=== PATIENT | male | born 1975 | race Caucasian/White ===

== ENCOUNTER 2023-01-10 01:46 | Outpatient (RCR) | payer MEDICAID, SELFPAY ==
[2023-01-03] MEDS: Normal Saline Flush 10 ML SYR IVP (11:54)
[2023-01-03 12:09] LABS: Abs Immature Grans 0.05 10^3/uL (0.0-0.06); Absolute Basophil Count 0.07 10^3/uL (0.0-0.2); Absolute Eosinophil Count 0.25 10^3/uL (0.0-0.7); Absolute Lymphocyte Count 1.16 10^3/uL (1.2-3.4); Absolute Monocyte Count 1.09 10^3/uL (0.1-0.8); Absolute Neutrophil Count 6.81 10^3/uL (1.2-6.7); Basophils % 0.7; Eosinophils % 2.7; HCT 25.8 % (40.0-50.0); HGB 8.6 g/dL (13.5-17.5); Immature Grans % 0.5; Lymphocytes % 12.3; MCH 29.9 pg (27.0-33.0); MCHC 33.3 % (32.0-36.0); MCV 90 fL (80-95); MPV 9.9 fL (8.0-11.0); Monocytes % 11.6; Neutrophils % 72.2; Platelet Count 460 10^3/uL (130-400); RBC 2.88 10^6/uL (4.36-5.78); RDW 11.6 % (11.8-14.1); RDW-SD 37.4 fL; WBC 9.43 10^3/uL (4.4-10.8)
[2023-01-03 12:29] LABS: ALT 20 U/L (16-63); AST 10 U/L (15-37); Albumin 3.4 g/dL (3.4-5.0); Alkaline Phosphatase 100 U/L (46-116); Anion Gap 6.5 mmol/L (3-11); BUN 51 mg/dL (7-18); Bilirubin, Total 0.2 mg/dL (0.2-1.0); CO2 27.5 mmol/L (21.0-32.0); CREATININE 2.2 mg/dL (0.70-1.30); Chloride 100 mmol/L (98-107); Estimated GFR 36.04 (mL/min/1.73m2); Glucose 249 mg/dL (74-106); LDH 283 U/L (85-227); Potassium 5.3 mmol/L (3.5-5.1); Sodium 134 mmol/L (136-145); Total Protein 7.1 g/dL (6.4-8.2)
[2023-01-10] MEDS: Normal Saline Flush 10 ML SYR IVP (07:05)
[2023-01-10 07:34] LABS: Abs Immature Grans 0.27 10^3/uL (0.0-0.06); HCT 23.9 % (40.0-50.0); HGB 7.9 g/dL (13.5-17.5); MCH 29.5 pg (27.0-33.0); MCHC 33.1 % (32.0-36.0); MCV 89 fL (80-95); Platelet Count 303 10^3/uL (130-400); RBC 2.68 10^6/uL (4.36-5.78); RDW 11.9 % (11.8-14.1); RDW-SD 38.5 fL; WBC 2.51 10^3/uL (4.4-10.8)
[2023-01-10 07:50] LABS: ALT 46 U/L (16-63); AST 7 U/L (15-37); Albumin 3.4 g/dL (3.4-5.0); Alkaline Phosphatase 138 U/L (46-116); Anion Gap 9.1 mmol/L (3-11); BUN 48 mg/dL (7-18); Bilirubin, Total 0.4 mg/dL (0.2-1.0); CO2 21.9 mmol/L (21.0-32.0); CREATININE 1.3 mg/dL (0.70-1.30); Calcium 9.2 mg/dL (8.5-10.1); Chloride 104 mmol/L (98-107); Estimated GFR 67.76 (mL/min/1.73m2); Glucose 243 mg/dL (74-106); LDH 148 U/L (85-227); Potassium 4.3 mmol/L (3.5-5.1); Sodium 135 mmol/L (136-145); Total Protein 6.5 g/dL (6.4-8.2)
[2023-01-10 08:05] LABS: Absolute Eosinophil Count 0.18 10^3/uL (0.0-0.7); Absolute Lymphocyte Count 0.55 10^3/uL (1.2-3.4); Absolute Neutrophil Count 1.76 10^3/uL (1.2-6.7); Atypical Lymphocytes % 0; Bands % 0; Diff Comment Manual Differential; Hypochromasia 1+; Metamyelocytes % 1
== END 2023-01-12 23:59 | disposition home or self-care (01) ==
LOC: INF 01:46
PROVIDERS: PCP Registered Nurse; Visit Provider Internal Medicine Hematology & Oncology
DX: Z45.2 Encounter for adjustment and management of vascular access device (principal); C83.38 Diffuse large B-cell lymphoma, lymph nodes of multiple sites
CPT/HCPCS: 36591; 80053; 83615; 85025

== ENCOUNTER 2023-01-24 02:44 | Outpatient (RCR) | payer MEDICAID, SELFPAY ==
[2023-01-24] MEDS: Normal Saline Flush 10 ML SYR IVP (07:51)
[2023-01-24 07:55] LABS: Abs Immature Grans 0.25 10^3/uL (0.0-0.06); Absolute Monocyte Count 1.39 10^3/uL (0.1-0.8); Eosinophils % 0.9; HCT 24.2 % (40.0-50.0); HGB 7.9 g/dL (13.5-17.5); Immature Grans % 1.4; Lymphocytes % 4.6; MCH 30.4 pg (27.0-33.0); MCHC 32.6 % (32.0-36.0); MCV 93 fL (80-95); MPV 9.5 fL (8.0-11.0); Monocytes % 7.9; Neutrophils % 84.2; Platelet Count 421 10^3/uL (130-400); RDW 14.5 % (11.8-14.1); RDW-SD 42.1 fL; WBC 17.54 10^3/uL (4.4-10.8)
[2023-01-24 07:56] LABS: Absolute Basophil Count 0.18 10^3/uL (0.0-0.2); Absolute Eosinophil Count 0.16 10^3/uL (0.0-0.7); Absolute Lymphocyte Count 0.81 10^3/uL (1.2-3.4); Absolute Neutrophil Count 14.77 10^3/uL (1.2-6.7)
[2023-01-24 08:13] LABS: ALT 24 U/L (16-63); AST 12 U/L (15-37); Albumin 3.6 g/dL (3.4-5.0); Alkaline Phosphatase 182 U/L (46-116); Anion Gap 7.2 mmol/L (3-11); BUN 35 mg/dL (7-18); Bilirubin, Total 0.2 mg/dL (0.2-1.0); CO2 24.8 mmol/L (21.0-32.0); CREATININE 1.6 mg/dL (0.70-1.30); Calcium 9.1 mg/dL (8.5-10.1); Chloride 107 mmol/L (98-107); Estimated GFR 52.82 (mL/min/1.73m2); Glucose 81 mg/dL (74-106); LDH 188 U/L (85-227); Potassium 4.8 mmol/L (3.5-5.1); Sodium 139 mmol/L (136-145)
== END 2023-02-11 23:59 | disposition home or self-care (01) ==
LOC: INF 02:44
PROVIDERS: PCP Registered Nurse; Visit Provider Internal Medicine Hematology & Oncology
DX: Z45.2 Encounter for adjustment and management of vascular access device (principal); C83.38 Diffuse large B-cell lymphoma, lymph nodes of multiple sites
CPT/HCPCS: 36591; 80053; 83615; 85025

== ENCOUNTER 2023-03-07 04:07 | Outpatient (RCR) | payer MEDICAID, SELFPAY ==
[2023-02-14] MEDS: Normal Saline Flush 10 ML SYR IVP (07:53)
[2023-02-14 08:10] LABS: Abs Immature Grans 0.08 10^3/uL (0.0-0.06); Absolute Basophil Count 0.09 10^3/uL (0.0-0.2); Absolute Eosinophil Count 0.07 10^3/uL (0.0-0.7); Absolute Lymphocyte Count 0.49 10^3/uL (1.2-3.4); Absolute Monocyte Count 1.05 10^3/uL (0.1-0.8); Absolute Neutrophil Count 8.05 10^3/uL (1.2-6.7); Basophils % 0.9; Eosinophils % 0.7; HCT 22.6 % (40.0-50.0); HGB 7.3 g/dL (13.5-17.5); Immature Grans % 0.8; MCH 31.5 pg (27.0-33.0); MCHC 32.3 % (32.0-36.0); MCV 97 fL (80-95); MPV 9.3 fL (8.0-11.0); Monocytes % 10.7; Neutrophils % 81.9; Platelet Count 387 10^3/uL (130-400); RBC 2.32 10^6/uL (4.36-5.78); WBC 9.83 10^3/uL (4.4-10.8)
[2023-02-14 08:39] LABS: ALT 27 U/L (16-63); AST 19 U/L (15-37); Albumin 3.8 g/dL (3.4-5.0); Alkaline Phosphatase 140 U/L (46-116); Anion Gap 8.9 mmol/L (3-11); BUN 27 mg/dL (7-18); Bilirubin, Total 0.2 mg/dL (0.2-1.0); CO2 24.1 mmol/L (21.0-32.0); CREATININE 1.4 mg/dL (0.70-1.30); Calcium 9.3 mg/dL (8.5-10.1); Chloride 106 mmol/L (98-107); Glucose 164 mg/dL (74-106); LDH 227 U/L (85-227); Potassium 5.1 mmol/L (3.5-5.1); Sodium 139 mmol/L (136-145)
[2023-02-14 08:49] LABS: Basophilic Stippling Present; Diff Comment Diff Reviewed; Hypochromasia 2+; Poikilocytes 2+
[2023-02-14 11:10] LABS: Iron 45 ug/dL (65-175)
[2023-02-14 11:23] LABS: Ferritin 570 ng/mL (26-388)
[2023-03-07] MEDS: Normal Saline Flush 10 ML SYR IVP (08:42)
[2023-03-07 08:56] LABS: Abs Immature Grans 0.07 10^3/uL (0.0-0.06); Absolute Basophil Count 0.08 10^3/uL (0.0-0.2); Absolute Eosinophil Count 0.08 10^3/uL (0.0-0.7); Absolute Lymphocyte Count 0.58 10^3/uL (1.2-3.4); Absolute Monocyte Count 1.03 10^3/uL (0.1-0.8); Basophils % 0.8; Eosinophils % 0.8; Immature Grans % 0.7; Lymphocytes % 5.5; MCH 30.6 pg (27.0-33.0); MCHC 32.1 % (32.0-36.0); MCV 95 fL (80-95); MPV 9.7 fL (8.0-11.0); Monocytes % 9.8; Neutrophils % 82.4; Platelet Count 361 10^3/uL (130-400); RBC 2.94 10^6/uL (4.36-5.78); RDW-SD 65.5 fL; WBC 10.54 10^3/uL (4.4-10.8)
[2023-03-07 09:20] LABS: ALT 29 U/L (16-63); AST 18 U/L (15-37); Albumin 4.1 g/dL (3.4-5.0); Alkaline Phosphatase 106 U/L (46-116); Anion Gap 9.6 mmol/L (3-11); BUN 28 mg/dL (7-18); Bilirubin, Total 0.3 mg/dL (0.2-1.0); CO2 24.4 mmol/L (21.0-32.0); CREATININE 1.3 mg/dL (0.70-1.30); Calcium 9.5 mg/dL (8.5-10.1); Chloride 104 mmol/L (98-107); Estimated GFR 67.76 (mL/min/1.73m2); Glucose 167 mg/dL (74-106); LDH 209 U/L (85-227); Potassium 5.2 mmol/L (3.5-5.1); Sodium 138 mmol/L (136-145)
== END 2023-03-14 23:59 | disposition home or self-care (01) ==
LOC: INF 04:07
PROVIDERS: PCP Registered Nurse; Visit Provider Internal Medicine Hematology & Oncology
DX: Z45.2 Encounter for adjustment and management of vascular access device (principal); C83.38 Diffuse large B-cell lymphoma, lymph nodes of multiple sites
CPT/HCPCS: 36591; 80053; 82728; 83540; 83550; 83615; 85025

== ENCOUNTER 2023-03-28 03:06 | Outpatient (RCR) | payer MEDICAID, SELFPAY ==
[2023-03-28] MEDS: Normal Saline Flush 10 ML SYR IVP (09:37)
[2023-03-28 09:54] LABS: Abs Immature Grans 0.13 10^3/uL (0.0-0.06); Absolute Basophil Count 0.08 10^3/uL (0.0-0.2); Absolute Eosinophil Count 0.02 10^3/uL (0.0-0.7); Absolute Lymphocyte Count 0.72 10^3/uL (1.2-3.4); Absolute Monocyte Count 1.03 10^3/uL (0.1-0.8); Absolute Neutrophil Count 6.91 10^3/uL (1.2-6.7); Basophils % 0.9; Eosinophils % 0.2; HCT 26.9 % (40.0-50.0); HGB 8.8 g/dL (13.5-17.5); Immature Grans % 1.5; Lymphocytes % 8.1; MCH 31.9 pg (27.0-33.0); MCHC 32.7 % (32.0-36.0); MCV 98 fL (80-95); MPV 9.3 fL (8.0-11.0); Monocytes % 11.6; Neutrophils % 77.7; Platelet Count 347 10^3/uL (130-400); RBC 2.76 10^6/uL (4.36-5.78); RDW 19.3 % (11.8-14.1); RDW-SD 68.6 fL; WBC 8.89 10^3/uL (4.4-10.8)
[2023-03-28 10:09] LABS: ALT 32 U/L (16-63); AST 20 U/L (15-37); Albumin 4.3 g/dL (3.4-5.0); Alkaline Phosphatase 103 U/L (46-116); Anion Gap 6.6 mmol/L (3-11); BUN 29 mg/dL (7-18); Bilirubin, Total 0.3 mg/dL (0.2-1.0); CO2 26.4 mmol/L (21.0-32.0); CREATININE 1.1 mg/dL (0.70-1.30); Calcium 9.3 mg/dL (8.5-10.1); Chloride 104 mmol/L (98-107); Estimated GFR 82.81 (mL/min/1.73m2); Glucose 162 mg/dL (74-106); LDH 279 U/L (85-227); Potassium 4.6 mmol/L (3.5-5.1); Sodium 137 mmol/L (136-145); Total Protein 7.2 g/dL (6.4-8.2)
== END 2023-04-13 23:59 | disposition home or self-care (01) ==
LOC: INF 03:06
PROVIDERS: PCP Registered Nurse; Visit Provider Internal Medicine Hematology & Oncology
DX: Z45.2 Encounter for adjustment and management of vascular access device (principal); C83.38 Diffuse large B-cell lymphoma, lymph nodes of multiple sites
CPT/HCPCS: 36591; 80053; 83615; 85025

== ENCOUNTER 2023-05-11 00:10 | Outpatient (CLI) | payer MEDICAID, SELFPAY ==
--- NOTE | 2023-05-11 07:15 | DI.MRI_ITS ---
Exam(s) MR LOWER JOINT LT WO/W EXAM: MR LOWER JOINT LT WO/W CLINICAL HISTORY: Chronic wound,? OSTEO,S81.802A,S81.801A,E11.62.L97.309. TECHNIQUE: Multiplanar multisequence MRI was performed. CONTRAST MATERIAL: IV Contrast: 14 mL of Dotarem contrast administered. COMPARISON: None. FINDINGS: A marker was placed on the site of concern. The markers placed anterior to the ankle joint on the yuly sum of the foot. No MR findings are seen to suggest osteomyelitis. There is a small amount of edema i n the area of the marker. No enhancing fluid collection is seen to suggest an abscess. There does nolan ear to be a skin defect which may represent an ulcer laceration in this region. The underlying extens or tendons are unremarkable. LIGAMENTS: The tibiofibular and calcaneofibular ligaments are intact. The talofibular ligaments are i ntact. The deltoid ligament is intact. The syndesmosis is unremarkable. Sinus tarsi is normal. MUSCULOTENDINOUS STRUCTURES: Achilles tendon: Unremarkable. Plantar fascia: Unremarkable. Anterior Extensor tendons: Unremarkable. Posterior Tibialis: Unremarkable. Flexor Digitorum longus: Unremarkable. Flexor Hallucis longus: Unremarkable. Peroneus longus: Unremarkable. Peroneus brevis:Unremarkable. OTHER FINDINGS: There is a small amount of fluid in the tibial talar joint. IMPRESSION: 1. No MRI evidence to suggest osteomyelitis. 2. Mild edema in the soft tissues in the area marked. No focal fluid collection is seen to suggest an abscess. There is some skin irregularity noted in this region which may represent an ulcer or lacera tion. DATA REPOSITORY:
--- NOTE | 2023-05-11 07:15 | DI.MRI_ITS ---
Exam(s) MR LOWER JOINT RT WO/W EXAM: MR LOWER JOINT RT WO/W CLINICAL HISTORY: Chronic wound,?osteo,S81.801A,S81.802A,L97.309,E11.622. TECHNIQUE: Multiplanar multisequence MRI was performed. CONTRAST MATERIAL: IV Contrast: 14 mL of Dotarem contrast administered. COMPARISON: None. FINDINGS: There are 2 areas marked both on the dorsum of the foot close to the ankle. There is soft tissue thi ckening in this area and mild edema in the soft tissues. There is a 0.8 x 0.4 cm peripherally enhanc ing fluid collection in the subcutaneous tissues beneath 1 of the markers. (Series [id number], image 13). This may represent a small abscess. The underlying extensor tendons are unremarkable. There is no evidence of osteomyelitis. LIGAMENTS: The tibiofibular and calcaneofibular ligaments are intact. The talofibular ligaments are i ntact. The deltoid ligament is intact. The syndesmosis is unremarkable. Sinus tarsi is normal. MUSCULOTENDINOUS STRUCTURES: Achilles tendon: Unremarkable. Plantar fascia: Unremarkable. Anterior Extensor tendons: Unremarkable. Posterior Tibialis: Unremarkable. Flexor Digitorum longus: Unremarkable. Flexor Hallucis longus: Unremarkable. Peroneus longus: Unremarkable. Peroneus brevis:Unremarkable. OTHER FINDINGS: None. IMPRESSION: 1. No evidence of osteomyelitis. 2. 0.8 x 0.4 cm peripherally enhancing fluid collection on the dorsum of the foot which may represent a small abscess. This corresponds to the palpable area of concern. 3. Subcutaneous edema and soft tissue thickening corresponding to the 2 palpable areas this may repre sent a cellulitis. DATA REPOSITORY:
[2023-05-11] MEDS: Normal Saline Flush 10 ML SYR IVP (12:33)
[2023-05-11] MEDS: Gadoterate meglumine 20 ML VIAL 14 ML IVP (12:34)
== END 2023-05-11 00:30 ==
PROVIDERS: PCP Registered Nurse; Visit Provider Physical Therapy Assistant
DX: E11.622 Type 2 diabetes mellitus with other skin ulcer (principal); L97.329 Non-pressure chronic ulcer of left ankle with unspecified severity; R60.9 Edema, unspecified
CPT/HCPCS: 73723

== ENCOUNTER 2023-05-11 01:05 | Outpatient (RCR) | payer MEDICAID, SELFPAY ==
[2023-04-18] MEDS: Normal Saline Flush 10 ML SYR IVP (08:31)
[2023-04-18 09:08] LABS: Abs Immature Grans 0.13 10^3/uL (0.0-0.06); Absolute Basophil Count 0.05 10^3/uL (0.0-0.2); Absolute Eosinophil Count 0.03 10^3/uL (0.0-0.7); Absolute Lymphocyte Count 0.49 10^3/uL (1.2-3.4); Absolute Monocyte Count 0.99 10^3/uL (0.1-0.8); Absolute Neutrophil Count 5.53 10^3/uL (1.2-6.7); Basophils % 0.7; Eosinophils % 0.4; HCT 22.5 % (40.0-50.0); HGB 7.4 g/dL (13.5-17.5); Immature Grans % 1.8; Lymphocytes % 6.8; MCH 33.8 pg (27.0-33.0); MCHC 32.9 % (32.0-36.0); MCV 103 fL (80-95); MPV 9.5 fL (8.0-11.0); Monocytes % 13.7; Neutrophils % 76.6; Platelet Count 369 10^3/uL (130-400); RBC 2.19 10^6/uL (4.36-5.78); RDW 18.7 % (11.8-14.1); RDW-SD 71.1 fL; WBC 7.22 10^3/uL (4.4-10.8)
[2023-04-18 09:22] LABS: ALT 23 U/L (16-63); AST 20 U/L (15-37); Alkaline Phosphatase 75 U/L (46-116); Anion Gap 8.2 mmol/L (3-11); BUN 38 mg/dL (7-18); Bilirubin, Total 0.3 mg/dL (0.2-1.0); CO2 25.8 mmol/L (21.0-32.0); CREATININE 1.3 mg/dL (0.70-1.30); Calcium 9.1 mg/dL (8.5-10.1); Chloride 101 mmol/L (98-107); Estimated GFR 67.76 (mL/min/1.73m2); Glucose 160 mg/dL (74-106); LDH 304 U/L (85-227); Potassium 5.1 mmol/L (3.5-5.1); Sodium 135 mmol/L (136-145); Total Protein 6.5 g/dL (6.4-8.2)
[2023-04-18 13:39] LABS: Reticulocyte 2.5 % (0.5-2.4)
[2023-04-18 13:48] LABS: Iron 52 ug/dL (65-175)
[2023-04-18 14:02] LABS: Ferritin 749 ng/mL (26-388)
[2023-05-11] MEDS: Normal Saline Flush 10 ML SYR IVP (12:06)
== END 2023-05-14 23:59 | disposition home or self-care (01) ==
LOC: INF 01:05
PROVIDERS: PCP Registered Nurse; Visit Provider Internal Medicine Hematology & Oncology
DX: C83.38 Diffuse large B-cell lymphoma, lymph nodes of multiple sites (principal); Z45.2 Encounter for adjustment and management of vascular access device
CPT/HCPCS: 36591; 80053; 96523; 82728; 83540; 83615; 85025; 85045

== ENCOUNTER 2023-05-30 02:32 | Outpatient (RCR) | payer MEDICAID, SELFPAY ==
[2023-05-30] MEDS: Normal Saline Flush 10 ML SYR IVP (10:22)
[2023-05-30] MEDS: Heparin 500 UNITS/5 ML SYRINGE IV (10:22)
[2023-05-30 10:55] LABS: Abs Immature Grans 0.05 10^3/uL (0.0-0.06); Absolute Basophil Count 0.04 10^3/uL (0.0-0.2); Absolute Eosinophil Count 0.16 10^3/uL (0.0-0.7); Absolute Lymphocyte Count 0.54 10^3/uL (1.2-3.4); Absolute Monocyte Count 0.66 10^3/uL (0.1-0.8); Absolute Neutrophil Count 1.55 10^3/uL (1.2-6.7); Basophils % 1.3; Eosinophils % 5.3; HCT 25.8 % (40.0-50.0); HGB 8.7 g/dL (13.5-17.5); Immature Grans % 1.7; MCH 34.3 pg (27.0-33.0); MCHC 33.7 % (32.0-36.0); MCV 102 fL (80-95); MPV 9.7 fL (8.0-11.0); Neutrophils % 51.7; Platelet Count 252 10^3/uL (130-400); RBC 2.54 10^6/uL (4.36-5.78); RDW 14.4 % (11.8-14.1); RDW-SD 53.5 fL; Reticulocyte 1.3 % (0.5-2.4)
[2023-05-30 11:43] LABS: ALT 26 U/L (16-63); AST 16 U/L (15-37); Albumin 3.9 g/dL (3.4-5.0); Alkaline Phosphatase 78 U/L (46-116); Anion Gap 7.9 mmol/L (3-11); BUN 32 mg/dL (7-18); Bilirubin, Total 0.3 mg/dL (0.2-1.0); CO2 27.1 mmol/L (21.0-32.0); CREATININE 1.3 mg/dL (0.70-1.30); Chloride 106 mmol/L (98-107); Estimated GFR 67.76 (mL/min/1.73m2); Glucose 278 mg/dL (74-106); Potassium 4.7 mmol/L (3.5-5.1); Sodium 141 mmol/L (136-145); TSH 1.18 uIU/mL (0.36-3.74); Total Protein 6.5 g/dL (6.4-8.2); Vitamin B12 1417 pg/mL (193-986)
[2023-05-30 11:45] LABS: Folate > 20.0 ng/mL (8.6-20.0)
[2023-05-30 11:47] LABS: Calcium 9.3 mg/dL (8.5-10.1)
[2023-05-30 12:07] LABS: Iron 72 ug/dL (65-175); Total Iron Binding Capacity 291 ug/dL (250-450); Transferrin Sat 25 % (20-55)
[2023-05-30 12:09] LABS: LDH 249 U/L (85-227)
[2023-05-30 12:21] LABS: Ferritin 622 ng/mL (26-388)
[2023-05-31 09:24] LABS: Haptoglobin 100 mg/dL (32-197)
[2023-05-31 14:35] LABS: Albumin 69.5 % (55.8-66.1); Albumin g/dL 4.2 g/dL (3.6-5.2); Total Protein 6.1 g/dL (6.3-8.2)
[2023-06-03 15:39] LABS: Testosterone, Total 309 ng/dL (240-950)
== END 2023-06-14 23:59 | disposition home or self-care (01) ==
LOC: INF 02:32
PROVIDERS: PCP Registered Nurse; Visit Provider Internal Medicine Hematology & Oncology
DX: C83.38 Diffuse large B-cell lymphoma, lymph nodes of multiple sites (principal); Z45.2 Encounter for adjustment and management of vascular access device
CPT/HCPCS: 36591; 80053; 82668; 84403; 82607; 82728; 82746; 83010; 83540; 83550; 83615; 84165; 84443; 85025; 85045

== ENCOUNTER 2023-06-22 06:17 | Day surgery (SDC) | payer MEDICAID, SELFPAY ==
--- NOTE | 2023-06-21 18:22 | W.PM.DSUDISC ---
Date of service: 06/22/23 Time of Service: 09:01 Discharge Plan Disposition Patient Disposition: Home Condition: Good Condition: Good Discharge Details Reason For Visit: Exicisions and closure of wounds Attending Provider: Carlos Arreguin Primary Care Provider: Dominick La Home Meds and New Rx's Prescriptions: New tramadol 100 mg tablet 50 mg PO BID PRNQty: 8 0RF Continued CBD PO aspirin 81 mg tablet,delayed release (DR/EC) 81 mg PO DAILY brimonidine-timolol [Combigan] 0.2-0.5 % drops 1 drp ophthalmic (eye) BID insulin lispro 100 unit/mL insulin pen 100 unit subcut TID Januvia 100 mg tablet 100 mg PO DAILY lisinopril 20 mg tablet 20 mg PO DAILY metformin 1,000 mg tablet 1,000 mg PO BID multivitamin with iron-mineral Tablet 1 tab PO DAILY Discharge Instructions Additional Instructions: Margarito, we were able to excise both of the wounds, and closed them with sutures today. You did very well in the operating room. As you can see, you have boots for the right and left foot to help keep your ankle from extending downward. This is to help relieve the tension on the skin, where the stitches are holding it together. Underneath of the boot, there is an Quirino wrap on each foot. Underneath of the Quirino wrap is some fluffed up gauze bandaging. And under that, is a yellow slimy gauze. I would encourage you to wear the boots whenever your feet are down on the floor. And certainly, if you are up and walking a bit. Obviously, you will need to be very careful in the beginning when trying to walk with the boots. If you find that it is impacting your balance, and you have any risk of falling at all, then please let me know, and we can make other arrangements. When you are sitting down, I would encourage you to try to keep your feet elevated. At that time, the boot can be removed for your comfort. Please leave all of the bandaging in place until Sunday the . At that point, remove everything including the slimy yellow gauze. Wash your feet with warm soapy water. Reapply basic Band-Aids if needed to protect the stitches. Repeat this washing exercise every day. You may notice that the incisions become bruised. I would expect that. There may also be a little redness around the stitches. That is fine. If you notice redness spreading beyond the sutures over the top part of your foot, and its bright red like a fire truck or a avitia, please let me know. It is fine to use Tylenol and ibuprofen to help with postoperative pain. I encourage patients to alternate them. Heating pads and ice packs can also be used for your comfort. Have also provided a prescription pain medication if you need it. Please try to use it sparingly. We have made a follow-up appointment with you on July 04 at 2:15 PM. We will plan to remove some or all of the stitches at that point depending upon how the incisions look. If you have any questions in the meantime, please do not hesitate to call. Stand Alone Forms: Anesthesia Discharge Inst., Linda Servin (DSU) Referrals: Carlos Arreguin MD [ [facility] STAFF PHYSICIAN] - (July 04 at 2:15 PM) Activity:: Activity as Tolerated Remove Dressings/Wound Care:: 48 hours Shower/Bathe:: 48 hours Diet:: As Tolerated Discharge Orders Discharge Orders: Discharge Order (Routine); Ordered 06/21/23 Ordered By: Carlos Arreguin DS: Diagnosis Discharge Diagnosis (1) Open wound of both lower extremities: Status: Acute
--- NOTE | 2023-06-21 18:24 | ROE_ITS ---
Date of service: 06/22/23 Time of Service: 09:10 Operative Note Operative Note DATE OF PROCEDURE: 06/22/23 PRE-OP DIAGNOSIS: Chronic bilateral lower extremity wounds PROCEDURE: Excision and primary closure of bilateral lower extremity wounds SURGEON: Carlos Arreguin [employer] SUPERVISOR: Olivia Berrios ANESTHESIA TYPE: Local By Surgeon and MAC Refer to Anesthesia Record ESTIMATED BLOOD LOSS: 15 PATHOLOGY: other (Right chronic foot wound. Single suture man proximal, 2 stitches man lateral; same for left chronic wound) COMPLICATIONS: None Patient was transported to: same day Patient's condition: stable Indications: Margarito is a 47-year-old male who has had chronic open wounds on the dorsum of both of his feet. He underwent preoperative MRI to rule out osteomyelitis. Procedure Description: After the induction of monitored anesthetic care, I prepped and draped both feet. Starting on the right side, I established a generous field block using local anesthetic with epinephrine. Next using a 15 blade scalpel, I sharply excised a semiovular portion of skin incorporating the open chronic wound, as w ell as some surrounding skin back to healthy skin tissue. The incision was oriented on a slightly oblique angle to minimize tension on the closure. Using a scalpel, I dissected down through the skin to the subcutaneous level and undermined the base of the wound. Essentially, it was a cystic capsule extending down towards the tendon sheath. Using tedious dissection, we elevated it up off the underlying tendon sheath. was passed off, and one suture was used to beatriz the more proximal margin, and 2 sutures were used to beatriz the lateral aspect. Surgical site was irrigated. It appeared hemostatic. The deep soft tissue was approximated with interrupted Vicryl stitches, and the skin was closed with interrupted nylon suture. Estimated excision size was 5 cm long by 2 and half centimeters wide. Next, we turned our attention to the left foot. Field block was established here as well using the same technique described above. And in the same manner as the right side, the wound was excised. This wound was approximately 5 cm long by 2.7 cm wide. This wound was also irrigated and appeared hemostatic prior to closure with interrupted Vicryl's for the deep layer, and mattressed nylon stitches on the skin because of some tension in closing this larger wound. Both closure sites were dressed with Adaptic gauze, fluffed Curlex and Quirino wrap's, and cam boots were used to help hold the feet in dorsiflexion. This is to try to minimize tension across the skin closure site. Patient was then allowed awaken from the monitored anesthetic, and transferred to the same-day surgery unit.
[2023-06-22 06:36] VITALS: BP 155/101; PULSE 96; RESP 16; TEMP 36.6; O2SAT 100
[2023-06-22] MEDS: Acetaminophen 500 MG TAB 1000 MG PO (06:52)
[2023-06-22] MEDS: Gabapentin 300 MG CAP 600 MG PO (06:52)
[2023-06-22] MEDS: Celecoxib 200 MG CAP PO (06:52)
[2023-06-22] MEDS: Lactated Ringers 1,000 ML 80 ML IV (07:06)
--- NOTE | 2023-06-22 07:10 | W.ANESPRE ---
General Info Date of Service Date Performed: 06/22/23 Height: 5 ft 8 in Weight: 70.7 kg Body Mass Index (BMI): 23.7 Surgical Procedure: Operation Date: 06/22/23 07:40 Proposed Procedure Side Surgeon p Excision & Primary Closure Ankle Wounds Bilateral Carlos Arreguin MD Meds Allergies and Home Medications Allergies Allergy/AdvReac Type Severity Reaction Status Date / Time No Known Drug Allergies Allergy Unknown Verified 06/22/23 06:46 Home Medication Medication Instructions Recorded aspirin 81 mg tablet,delayed 81 mg PO DAILY 04/05/23 release brimonidine 0.2 %-timolol 0.5 % 1 drp ophthalmic (eye) BID 04/05/23 eye drops (Combigan) insulin lispro 100 unit/mL 100 unit subcut TID 04/05/23 subcutaneous pen lisinopril 20 mg tablet 20 mg PO DAILY 04/05/23 metformin 1,000 mg tablet 1,000 mg PO BID 04/05/23 multivitamin with iron-mineral 1 tab PO DAILY 04/05/23 sitagliptin phosphate 100 mg 100 mg PO DAILY 04/05/23 tablet (Januvia) CBD PO 06/06/23 Current Visit Medications: Current Medications Generic Name Dose Route Start Last Admin Trade Name Freq PRN Reason Stop Dose Admin Acetaminophen 1,000 mg 06/22/23 06:00 06/22/23 06:52 Acetaminophen 500 Mg Tab PO 06/22/23 18:00 1,000 mg PREOP RYAN Administration Celecoxib 200 mg 06/22/23 06:00 06/22/23 06:52 Celecoxib 200 Mg Cap PO 06/22/23 18:00 200 mg PREOP RYAN Administration Gabapentin 600 mg 06/22/23 06:00 06/22/23 06:52 Gabapentin 300 Mg Cap PO 06/22/23 18:00 600 mg PREOP RYAN Administration Hydromorphone HCl 0.2 mg 06/21/23 18:25 Hydromorphone 2 Mg/Ml Syr IVP 07/21/23 18:24 Q1H PRN PRN Ringer's Solution 1,000 mls @ 80 mls/hr 06/22/23 06:00 06/22/23 07:06 IV 07/21/23 23:59 80 mls/hr INFUSION RYAN Administration Cefazolin Sodium/Dextrose 2 gm in 50 mls @ 100 mls/hr 06/22/23 06:00 Ancef Duplex IVPB 06/22/23 18:00 PREOP RYAN IV Miscellaneous Supplies 1 each 06/22/23 06:00 Iv Access IV 07/21/23 23:59 DIRECTED RYAN Sodium Chloride 0 ml 06/22/23 06:00 Normal Saline Flush 10 Ml Syr IV 07/21/23 23:59 PRN PRN Sodium Chloride 0 ml 06/22/23 06:00 Normal Saline 10 Ml Vial IJ 07/21/23 23:59 DIRECTED PRN Sterile Water 0 ml 06/22/23 06:00 Water,Injection,Sterile 10 Ml Vial IJ 07/21/23 23:59 DIRECTED PRN Tramadol HCl 50 mg 06/21/23 18:25 Tramadol 50 Mg Tab PO 07/21/23 18:24 Q6H PRN PRN Pain PFSH Active Problems Active Problems: Problem Status Onset Code Open wound of both lower extremities S81.801A, S81.802A Wound of left lower extremity S81.802A 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, 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 Diffuse large B-cell lymphoma of lymph nodes of multiple regions C83.38 History of lymph node biopsy Z98.890 Peripheral neuropathy G62.9 Anxiety F41.9 Wound of right lower extremity S81.801A Medical History Medical History Cataracts, bilateral Diabetes Glaucoma Legally blind in left eye, as defined in [place] Medical History Comments:: 06/22/23 pt reports he has post-nasal drip Tobacco Smoking/Tobacco Use Status: Never Alcohol Alcohol Intake: current Alcohol intake frequency: holidays/special occasions only Substance Use Substance use: Daily Substance use type: marijuana Details: 06/22/23 smoked marijuana at 05:50am Vital Signs and Lab Results Vital Signs Most Recent Vital Signs in EMR: Most Recent Vital Signs Temp Pulse Resp BP Pulse Ox 36.6 C 96 H 16 155/101 H 100 06/22/23 06:36 06/22/23 06:36 06/22/23 06:36 06/22/23 06:36 06/22/23 06:36 Point of Care Results Point of Care Results: Finger Stick Blood Glucose 192 06/22/23 06:42 Lab Results Blood Type / Crossmatch: No Data to Display Complete Blood Count: White Blood Count 3.00 10^3/uL (4.4-10.8) L 05/30/23 10:20 Red Blood Count 2.54 10^6/uL (4.36-5.78) L 05/30/23 10:20 Hemoglobin 8.7 g/dL (13.5-17.5) L 05/30/23 10:20 Hematocrit 25.8 % (40.0-50.0) L 05/30/23 10:20 Platelet Count 252 10^3/uL (130-400) 05/30/23 10:20 Complete Metabolic Panel: Sodium 141 mmol/L (136-145) 05/30/23 10:20 Potassium 4.7 mmol/L (3.5-5.1) 05/30/23 10:20 Chloride 106 mmol/L (98-107) 05/30/23 10:20 Carbon Dioxide 27.1 mmol/L (21.0-32.0) 05/30/23 10:20 BUN 32 mg/dL (7-18) H 05/30/23 10:20 Creatinine 1.3 mg/dL (0.70-1.30) 05/30/23 10:20 Est GFR (CKD-EPI 2020) 67.76 (mL/min/1.73m2) 05/30/23 10:20 Calcium 9.3 mg/dL (8.5-10.1) 05/30/23 10:20 Albumin 3.9 g/dL (3.4-5.0) 05/30/23 10:20 Glucose 278 mg/dL (74-106) H 05/30/23 10:20 Liver Function Panel: Alanine Aminotransferase (ALT/SGPT) 26 U/L (16-63) 05/30/23 10:20 Aspartate Amino Transf (AST/SGOT) 16 U/L (15-37) 05/30/23 10:20 Coagulation Panel: No Data to Display Cardiac Panel: No Data to Display Arterial Blood Gas: No Data to Display Venous Blood Gas: No Data to Display Pancreas Panel: No Data to Display Thyroid Panel: Thyroid Stimulating Hormone (TSH) 1.18 uIU/mL (0.36-3.74) 05/30/23 10:20 Infectious Disease: No Data to Display Blood Cultures: No Data to Display Toxicology Panel: No Data to Display Anesthesia Assessment and Plan Anesthesia History Personal History: No History of Anesthesia Complications Family History: No Family History of Anesthesia Complications Exercise Tolerance Exercise Tolerance: Metabolic Equivalents>4 Cardiac & Pulmonary Exam Cardiac Exam: Normal S1/S2 Heart Sounds Pulmonary Exam: Clear Bilateral Breath Sounds Implantable Cardiac Device Does patient have a Pacemaker or an ICD?: No Airway Exam Known Difficult Airway: No Mallampati Class: 1 Mouth Opening: Normal (> 3cm) Thyromental Distance: Greater than 3 cm Neck Range of Motion: Full ROM Neck Circumference: Normal Teeth Condition: Generalized Poor Dentition ASA Classification ASA Score: ASA 3 Emergency Case?: No NPO Status NPO Status: NPO Small Non-Fatty Meal >6 hours (Delay until 0800, patient consumed milk with coffee 0200) Anesthesia Plan Resuscitation Status: Full Code Anesthesia Technique: General Anesthesia Airway Planned: Natural Airway Monitors Used: Standard Monitors Preoperative Comments:: MAC/GA with GA/LMA backup
[2023-06-22 07:54] VITALS: BMI 23.7
[2023-06-22] MEDS: ceFAZolin 2 GM/50 ML BAG IVPB (08:04)
[2023-06-22] MEDS: EPINEPHrine 30 MG/30 ML VIAL (08:34)
[2023-06-22] MEDS: Bupivacaine 0.25% Pres-Free 30 ML VIAL (08:35)
[2023-06-22 08:59] VITALS: BP 141/92; PULSE 88; RESP 16; TEMP 36.1; O2SAT 99
--- NOTE | 2023-06-22 09:00 | SKI_PTH ---
PATIENT: Margarito Argueta LOC: [facility] U#:[id number] AGE/SX: 47/M ROOM: RE06/22/[address]: Carlos Arreguin MD : 1975 BED: DIS: 06/22/2023 SPEC #: [id number] RECD: 06/22/23 11:58 STATUS: CAHPIN REValery #: [id number] KEDAR: 06/22/23 09:[address]: Carlos Arreguin DEPT: Surgical Specimen RECD BY: Blanca Millan ENTERED: 06/22/23 11:59 SP TYPE: AURELIA DE LEON DR: Dominick La Tissues: 1 - SKIN BIOPSY(SHAVE/PUNCH) 2 - SKIN BIOPSY(SHAVE/PUNCH) Procedures: GROSS AND MICRO LEVEL 4 Comments: [id number]
--- NOTE | 2023-06-22 09:11 | W.ANESPOSTOP ---
Postoperative Evaluation Date, Time and Location Date Performed: 06/22/23 Time Performed: 09:11 Patient Location: Day Surgery Unit Vital Signs Most Recent Imported Vital Signs: Most Recent Vital Signs Temp Pulse Resp BP Pulse Ox 36.1 C L 88 16 141/92 H 99 06/22/23 08:59 06/22/23 08:59 06/22/23 08:59 06/22/23 08:59 06/22/23 08:59 Pain Score Most Recent Pain Score: Most Recent Pain Score Pain Level 0 06/22/23 08:59 Assessment Mental Status: Awake (Alert & Oriented to Patient Baseline) Airway and Respiratory Function: Patent airway with normal (patient baseline) respiratory exam Cardiovascular Function: Hemodynamically Stable Hydration Status: Adequately Hydrated Nausea & Vomiting: No Nausea or Vomiting Pain: Pt. Denies Any Pain Peripheral Nerve Block: Patient did not receive a nerve block
[2023-06-22 09:31] VITALS: BP 157/108; PULSE 87; RESP 16; TEMP 36.2; O2SAT 100
== END 2023-06-22 10:08 | disposition home or self-care (01) ==
PROVIDERS: PCP Family Medicine; Visit Provider Surgery
PROC: (CPT 28039; principal; 2023-06-22 07:30)
DX: S81.801A Unspecified open wound, right lower leg, initial encounter (principal); S81.802A Unspecified open wound, left lower leg, initial encounter; X58.XXXA Exposure to other specified factors, initial encounter; L28.0 Lichen simplex chronicus; R23.8 Other skin changes
CPT/HCPCS: 28039; 88305; J0690; J1100; J2250; J2405; J2704; J3010

== ENCOUNTER 2024-11-05 02:10 | Outpatient (CLI) | payer MEDICAID, SELFPAY ==
[2024-11-05 11:55] LABS: Abs Immature Grans 0.05 10^3/uL (0.0-0.06); Absolute Basophil Count 0.07 10^3/uL (0.0-0.2); Absolute Eosinophil Count 0.16 10^3/uL (0.0-0.7); Absolute Lymphocyte Count 1.71 10^3/uL (1.2-3.4); Absolute Monocyte Count 0.72 10^3/uL (0.1-0.8); Absolute Neutrophil Count 8.02 10^3/uL (1.2-6.7); Basophils % 0.7 %; Eosinophils % 1.5 %; HCT 40.6 % (40.0-50.0); HGB 13.6 g/dL (13.5-17.5); Immature Grans % 0.5 %; Lymphocytes % 15.9 %; MCH 32.3 pg (27.0-33.0); MCHC 33.5 % (32.0-36.0); MCV 96 fL (80-95); MPV 9.6 fL (8.0-11.0); Monocytes % 6.7 %; Neutrophils % 74.7 %; Platelet Count 332 10^3/uL (130-400); RBC 4.21 10^6/uL (4.36-5.78); RDW 11.8 % (11.8-14.1); RDW-SD 40.8 fL; WBC 10.73 10^3/uL (4.4-10.8)
[2024-11-05 12:16] LABS: Iron 79 ug/dL (65-175); Total Iron Binding Capacity 351 ug/dL (250-450); Transferrin Sat 23 % (20-55)
[2024-11-05 12:21] LABS: ALT 53 U/L (16-63); AST 17 U/L (15-37); Albumin 4.3 g/dL (3.4-5.0); Alkaline Phosphatase 108 U/L (46-116); Anion Gap 6.2 mmol/L (3-11); BUN 33 mg/dL (7-18); Bilirubin, Total 0.41 mg/dL (0.2-1.0); CO2 32.8 mmol/L (21.0-32.0); CREATININE 1.7 mg/dL (0.70-1.30); Calcium 9.5 mg/dL (8.5-10.1); Chloride 102 mmol/L (98-107); Estimated GFR 48.51 (mL/min/1.73m2); Ferritin 404 ng/mL (26-388); Glucose 271 mg/dL (74-106); LDH 158 U/L (85-227); Potassium 4.5 mmol/L (3.5-5.1); Sodium 141 mmol/L (136-145); Total Protein 7.7 g/dL (6.4-8.2)
== END 2024-11-05 02:11 | disposition home or self-care (01) ==
LOC: LBO 02:10
PROVIDERS: PCP Family Medicine; Visit Provider Internal Medicine Hematology & Oncology
DX: C83.38 Diffuse large B-cell lymphoma, lymph nodes of multiple sites (principal)
CPT/HCPCS: 36415; 80053; 82728; 83540; 83550; 83615; 85025

== ENCOUNTER 2025-02-25 12:38 | Outpatient (CLI) | payer MEDICAID, SELFPAY ==
[2025-02-25 12:34] LABS: Abs Immature Grans 0.05 10^3/uL (0.0-0.06); Absolute Basophil Count 0.04 10^3/uL (0.0-0.2); Absolute Eosinophil Count 0.19 10^3/uL (0.0-0.7); Absolute Lymphocyte Count 1.97 10^3/uL (1.2-3.4); Absolute Monocyte Count 0.76 10^3/uL (0.1-0.8); Absolute Neutrophil Count 7.08 10^3/uL (1.2-6.7); Basophils % 0.4 %; Eosinophils % 1.9 %; HCT 40.4 % (40.0-50.0); HGB 13.8 g/dL (13.5-17.5); Immature Grans % 0.5 %; Lymphocytes % 19.5 %; MCHC 34.2 % (32.0-36.0); MCV 94 fL (80-95); MPV 9.9 fL (8.0-11.0); Monocytes % 7.5 %; Neutrophils % 70.2 %; Platelet Count 323 10^3/uL (130-400); RBC 4.31 10^6/uL (4.36-5.78); RDW 11.8 % (11.8-14.1); RDW-SD 40.4 fL; WBC 10.09 10^3/uL (4.4-10.8)
[2025-02-25 13:07] LABS: ALT 48 U/L (16-63); AST 20 U/L (15-37); Albumin 4.3 g/dL (3.4-5.0); Alkaline Phosphatase 106 U/L (46-116); Anion Gap 7.2 mmol/L (3-11); BUN 43 mg/dL (7-18); Bilirubin, Total 0.4 mg/dL (0.2-1.0); CO2 30.8 mmol/L (21.0-32.0); CREATININE 1.7 mg/dL (0.70-1.30); Calcium 9.6 mg/dL (8.5-10.1); Chloride 97 mmol/L (98-107); Estimated GFR 48.51 (mL/min/1.73m2); Ferritin 358 ng/mL (26-388); Glucose 312 mg/dL (74-106); Potassium 4.5 mmol/L (3.5-5.1); Sodium 135 mmol/L (136-145); Total Protein 7.9 g/dL (6.4-8.2)
[2025-02-25 13:22] LABS: Iron 78 ug/dL (65-175); Total Iron Binding Capacity 340 ug/dL (250-450); Transferrin Sat 23 % (20-55)
[2025-02-25 13:28] LABS: LDH 148 U/L (85-227)
== END 2025-02-25 12:39 | disposition home or self-care (01) ==
LOC: LBO 12:38
PROVIDERS: PCP Family Medicine; Visit Provider Internal Medicine Hematology & Oncology
DX: C83.38 Diffuse large B-cell lymphoma, lymph nodes of multiple sites (principal)
CPT/HCPCS: 36415; 80053; 82728; 83540; 83550; 83615; 85025

== ENCOUNTER 2025-07-01 01:46 | Outpatient (CLI) | payer MEDICAID, SELFPAY ==
[2025-07-01 10:17] LABS: Abs Immature Grans 0.04 10^3/uL (0.0-0.06); HCT 37.8 % (40.0-50.0); HGB 12.7 g/dL (13.5-17.5); Immature Grans % 0.4 %; MCH 31.6 pg (27.0-33.0); MCHC 33.6 % (32.0-36.0); MCV 94 fL (80-95); MPV 10.0 fL (8.0-11.0); Platelet Count 329 10^3/uL (130-400); RBC 4.02 10^6/uL (4.36-5.78); RDW 12.0 % (11.8-14.1); RDW-SD 41.7 fL; WBC 9.60 10^3/uL (4.4-10.8)
[2025-07-01 10:49] LABS: Iron 78 ug/dL (65-175); Total Iron Binding Capacity 310 ug/dL (250-450); Transferrin Sat 25 % (20-55)
[2025-07-01 10:51] LABS: ALT 47 U/L (16-63); AST 17 U/L (15-37); Albumin 4.0 g/dL (3.4-5.0); Alkaline Phosphatase 89 U/L (46-116); Anion Gap 8.1 mmol/L (3-11); BUN 30 mg/dL (7-18); Bilirubin, Total 0.5 mg/dL (0.2-1.0); CO2 30.9 mmol/L (21.0-32.0); Calcium 9.2 mg/dL (8.5-10.1); Chloride 98 mmol/L (98-107); Estimated GFR 52.17 (mL/min/1.73m2); Ferritin 366 ng/mL (26-388); Glucose 390 mg/dL (74-106); Potassium 4.4 mmol/L (3.5-5.1); Sodium 137 mmol/L (136-145); Total Protein 7.4 g/dL (6.4-8.2)
[2025-07-01 11:03] LABS: LDH 166 U/L (85-227)
== END 2025-07-01 01:47 | disposition home or self-care (01) ==
LOC: LBO 01:46
PROVIDERS: PCP Family Medicine; Visit Provider Internal Medicine Hematology & Oncology
DX: C83.38 Diffuse large B-cell lymphoma, lymph nodes of multiple sites (principal)
CPT/HCPCS: 36415; 80053; 82728; 83540; 83550; 83615; 85025